=== PATIENT | female | born 2000 | race Caucasian/White ===

== ENCOUNTER 2019-11-05 08:42 | Emergency (ER) | payer BC, SELFPAY ==
[~2019-11-05] VITALS: Ht 160 cm; Wt 47.2 kg
[2019-11-05 09:04] VITALS: Ht 160 cm; Wt 47.2 kg
[2019-11-05 10:22] VITALS: BP 116/80
== END 2019-11-05 10:22 | disposition home or self-care (01) ==
LOC: ED 08:42
DX: U07.1 COVID-19 (principal)
CPT/HCPCS: U0003-CS